=== PATIENT | female | born 1990 | race African-American/Black ===

== ENCOUNTER 2019-01-10 17:40 | Observation (INO) | payer MEDICAID ==
[~2019-01-10] VITALS: Ht 165.1 cm; Wt 76.2 kg
[~2019-01-10 17:40] MED LIST: PREN-125 OR
[2019-01-10] MEDS ORDERED: TERBUTALINE SULFATE 1 MG/ML 1ML VIAL SC ONE (18:57)
[2019-01-10] MEDS ORDERED: LACTATED RINGER'S 1,000 ML IV ONE (19:00)
[2019-01-10] MEDS ORDERED: TERBUTALINE SULFATE 1 MG/ML 1ML VIAL SC SCH (19:00)
== END 2019-01-10 20:21 | disposition home or self-care (01) | DRG 566 ==
LOC: LDRP 17:40
PROVIDERS: ADMIT Specialist; ATTEND Specialist
DX: O26.899 Other specified pregnancy related conditions, unspecified trimester (principal); R10.9 Unspecified abdominal pain; R51 Headache; Z3A.00 Weeks of gestation of pregnancy not specified
CPT/HCPCS: 59025; 81002; 96372; G0378; J3105; 96366

== ENCOUNTER 2019-01-12 18:27 | Observation (INO) | payer MEDICAID | END 2019-01-12 20:45 | disposition home or self-care (01) | DRG 566 | LOC: LDRP 19:35 | PROVIDERS: ADMIT Obstetrics & Gynecology; ATTEND Obstetrics & Gynecology | DX: O41.92X0 Disorder of amniotic fluid and membranes, unspecified, second trimester, not applicable or unspecified (principal); Z3A.25 25 weeks gestation of pregnancy | CPT/HCPCS: 59025; 76818; 81002; 82948; 82962; G0378 ==

== ENCOUNTER 2019-03-09 17:50 | Observation (INO) | payer MEDICAID | END 2019-03-09 20:58 | disposition home or self-care (01) | DRG 566 | LOC: LDRP 17:50 | PROVIDERS: ADMIT Specialist; ATTEND Specialist | DX: O26.893 Other specified pregnancy related conditions, third trimester (principal); O40.3XX0 Polyhydramnios, third trimester, not applicable or unspecified; Z3A.33 33 weeks gestation of pregnancy | CPT/HCPCS: 59025; 76817; 76818; 81002; G0378 ==

== ENCOUNTER 2019-03-16 10:30 | Observation (INO) | payer MEDICAID ==
[~2019-03-16] VITALS: Ht 165.1 cm; Wt 78.9 kg
[2019-03-16 11:15] LABS: Basophils # (auto) 0 uL; Nucleated Red Blood Cells % 0.1 %; Red Blood Cells 4.62 10^6/uL (4.0-5.20)
[2019-03-16 11:17] LABS: Basophils % (auto) 0.3 % (0.0-2.0); Eosinophils # (auto) 0.2 uL; Eosinophils % (auto) 2.1 % (0.0-7.0); Hemoglobin 11.4 g/dL (12.2-16.2); Lymphocytes # (auto) 1.1 uL; Lymphocytes % (auto) 10.1 % (10.0-50.0); Mean Corpuscular Hemoglobin 24.7 pg (28.0-32.0); Mean Corpuscular Hgb Conc. 32.6 g/dL (32.0-36.0); Mean Corpuscular Volume 75.7 fL (80.0-100.0); Monocytes % (auto) 8.5 % (0.0-12.0); Platelet Count (auto) 241 10^3/uL (140-450); Red Cell Distribution Width 15.4 % (11.8-14.3); White Blood Cell 11.4 10^3/uL (4.4-10.8)
[2019-03-16 11:33] LABS: Albumin 2.7 g/dL (3.4-5.0); Calcium 8.2 mg/dL (8.5-10.1); INR 0.97 (0.9-1.15); Partial Thromboplastin Time 30.2 sec (23.64-32.05); Potassium 3.3 mmol/L (3.5-5.1); Uric Acid 3.6 mg/dL (2.6-6.0)
[2019-03-16 11:36] LABS: BUN/Creatinine Ratio 4.6; Bilirubin, Total 0.4 mg/dL (0.2-1.0); Total Protein 6.5 g/dL (6.4-8.2)
[2019-03-16] MEDS ORDERED: BETAMETHASONE ACET (6MG/ML) 5ML VIAL IM ONE (12:00)
[2019-03-16] MEDS ORDERED: LACTATED RINGER'S 1,000 ML IV ONE (12:30)
[2019-03-16] MEDS ORDERED: NIFEdipine 10 MG CAP PO ONE (12:30)
[2019-03-16 13:31] LABS: Urine Bacteria FEW /hpf (None Seen); Urine Blood Negative /uL (Negative); Urine Specific Gravity 1.006 (1.001-1.035); Urine WBC 1 /hpf (0 - 5)
[2019-03-17] MEDS ORDERED: NIF10C PO (17:11)
== END 2019-03-16 15:50 | disposition home or self-care (01) | DRG 566 ==
LOC: LDRP 10:30
PROVIDERS: ADMIT Specialist; ATTEND Specialist
DX: O13.3 Gestational [pregnancy-induced] hypertension without significant proteinuria, third trimester (principal); Z3A.34 34 weeks gestation of pregnancy
CPT/HCPCS: 36415; 59025; 80053; 81001; 81002; 84550; 85025; 85362; 85610; 85730; 96372; G0378; J0702; 96361; 96366

== ENCOUNTER 2019-03-17 16:30 | Observation (INO) | payer MEDICAID ==
[~2019-03-17] VITALS: Ht 165.1 cm; Wt 78.9 kg
[2019-03-17] MEDS ORDERED: BETAMETHASONE ACET (6MG/ML) 5ML VIAL IM ONE (17:00)
[2019-03-17] MEDS ORDERED: NIF10C PO (17:11)
[2019-03-17] MEDS ORDERED: NIFEdipine 10 MG CAP PO ONE (17:45)
[2019-03-17] MEDS ORDERED: LABETALOL HCL 200 MG TAB PO ONE (19:00)
[2019-03-18] MEDS ORDERED: LABE200T18 PO (09:39)
== END 2019-03-17 20:45 | disposition home or self-care (01) | DRG 563 ==
LOC: LDRP 16:30
PROVIDERS: ADMIT Specialist; ATTEND Specialist
DX: O60.03 Preterm labor without delivery, third trimester (principal); O13.3 Gestational [pregnancy-induced] hypertension without significant proteinuria, third trimester; Z3A.35 35 weeks gestation of pregnancy
CPT/HCPCS: 59025; 76818; 81002; 84156; 96372; G0378

== ENCOUNTER 2019-03-18 07:50 | Observation (INO) | payer MEDICAID ==
[~2019-03-18] VITALS: Ht 165.1 cm; Wt 78.9 kg
[~2019-03-18 07:50] MED LIST changes: +NIF10C PO
[2019-03-18 09:08] LABS: Urine WBC None Seen /hpf (0 - 5)
[2019-03-18 09:10] LABS: Basophils # (auto) 0 uL; Eosinophils # (auto) 0 uL; Neutrophils # (auto) 13.3 uL; Nucleated Red Blood Cells % 0.1 %
[2019-03-18 09:13] LABS: Basophils % (auto) 0.2 % (0.0-2.0); Hematocrit 32.7 % (36.0-46.0); Hemoglobin 10.6 g/dL (12.2-16.2); Lymphocytes % (auto) 6.7 % (10.0-50.0); Mean Corpuscular Hemoglobin 24.7 pg (28.0-32.0); Mean Corpuscular Hgb Conc. 32.5 g/dL (32.0-36.0); Mean Corpuscular Volume 75.9 fL (80.0-100.0); Monocytes # (auto) 0.9 uL; Monocytes % (auto) 6.1 % (0.0-12.0); Platelet Count (auto) 264 10^3/uL (140-450); Red Cell Distribution Width 15.5 % (11.8-14.3); White Blood Cell 15.3 10^3/uL (4.4-10.8)
[2019-03-18] MEDS ORDERED: ACETAMINOPHEN 500 MG TAB PO ONE (09:15)
[2019-03-18 09:18] LABS: Urine Bacteria FEW /hpf (None Seen); Urine Blood Negative /uL (Negative); Urine Mucus FEW (None Seen); Urine Specific Gravity 1.024 (1.001-1.035)
[2019-03-18 09:25] LABS: INR 0.97 (0.9-1.15); Partial Thromboplastin Time 27.3 sec (23.64-32.05)
[2019-03-18] MEDS ORDERED: LABE200T18 PO (09:39)
[2019-03-18 09:51] LABS: Albumin 2.6 g/dL (3.4-5.0); Calcium 8.5 mg/dL (8.5-10.1); Potassium 3.6 mmol/L (3.5-5.1); Uric Acid 3.7 mg/dL (2.6-6.0)
[2019-03-18 09:55] LABS: BUN/Creatinine Ratio 6.3; Bilirubin, Total 0.2 mg/dL (0.2-1.0); Total Protein 6.5 g/dL (6.4-8.2)
== END 2019-03-18 14:02 | disposition home or self-care (01) | DRG 566 ==
LOC: LDRP 07:50
PROVIDERS: ADMIT Obstetrics & Gynecology; ATTEND Obstetrics & Gynecology
DX: O26.893 Other specified pregnancy related conditions, third trimester (principal); R51 Headache; Z3A.35 35 weeks gestation of pregnancy
CPT/HCPCS: 36415; 59025; 76818; 80053; 81001; 81002; 84550; 85025; 85610; 85730; G0378; 96361; 96365; 96366